=== PATIENT | male | born 1980 | race Caucasian/White ===

== ENCOUNTER → 2024-06-16 14:11 | Outpatient (CLI) | payer OTHER, SELFPAY ==
--- NOTE | 2024-06-16 14:15 | DI.RAD.S_ITS ---
PROCEDURE: XR SHOULDER LT MIN 2V INDICATIONS: left rotator cuff pain TECHNIQUE: Three views of the shoulder were acquired. COMPARISON: None. FINDINGS: Bones: No fractures or dislocations. No suspicious bony lesions. Small round radiodensities, likely bone islands in the humeral head. Visualized ribs appear intact. Soft tissues: No suspicious soft tissue calcifications. IMPRESSION: No acute bony abnormality. Dictated by: Hemalatha Michaels M.D. on 06/16/2024 at 16:27 Approved by: Hemalatha Michaels M.D. on 06/16/2024 at 16:28
== END ==
PROVIDERS: PCP Physician Assistant; Referring Provider Physician Assistant; Visit Provider Physician Assistant
DX: M25.512 Pain in left shoulder (principal); G89.29 Other chronic pain
CPT/HCPCS: 73030